=== PATIENT | female | born 1940 | race Native Hawaiian/Other Pacific Islander ===

== ENCOUNTER 2016-10-04 10:29 | Outpatient (CLI) | payer OTHER, BC ==
[~2016-10-04] VITALS: Ht 167.6 cm; Wt 83.5 kg
[2016-10-04 10:40] VITALS: BP 122/61; TEMP 98.3
[2016-10-04 12:10] VITALS: BP 115/68; TEMP 97.4
== END 2016-10-04 19:02 | disposition home or self-care (01) ==
LOC: INF 10:29
DX: D64.89 Other specified anemias (principal)
CPT/HCPCS: 96365; Q0138

== ENCOUNTER 2016-10-11 10:08 | Outpatient (CLI) | payer OTHER, BC ==
[~2016-10-11] VITALS: Ht 167.6 cm; Wt 83.5 kg
[2016-10-11 10:20] VITALS: BP 112/62; TEMP 97.6
[2016-10-11 11:40] VITALS: BP 124/64; TEMP 97.6
== END 2016-10-11 12:30 | disposition home or self-care (01) ==
LOC: INF 10:08
DX: D64.89 Other specified anemias (principal)
CPT/HCPCS: 96365; Q0138